=== PATIENT | female | born 1995 | race Caucasian/White ===

== ENCOUNTER 2017-08-01 12:00 | Emergency (ER) | payer OTHER ==
[~2017-08-01] VITALS: Ht 162.6 cm; Wt 56.3 kg
[2017-08-01 12:04] VITALS: TEMP 36.7; Ht 162.6 cm; Wt 56.3 kg
[2017-08-01] MEDS ORDERED: SULF800T23 PO (12:44)
[2017-08-01] MEDS ORDERED: CEPH500C PO (12:44)
[2017-08-01] MEDS ORDERED: TRAM-10 PO (12:44)
[2017-08-01] MEDS ORDERED: SEPTRA DS HOME PACK 1 EA VIAL PO ONE (12:45)
[2017-08-01] MEDS ORDERED: CEPHALEXIN 500MG HOME PACK 1 EA BTL PO ONE (12:45)
[2017-08-01] MEDS ORDERED: TRAMADOL HCL 50 MG HOME PACK PO ONE (12:45)
[2017-08-01 12:58] VITALS: BP 123/71; PULSE 61; O2SAT 100
--- NOTE | 2017-08-01 16:36 | EMERGENCY ROOM VISIT NOTE ---
History First contact with patient: 12:28 Chief Complaint: SKIN PROBLEM Stated Complaint: SWOLLEN LEFT SIDE OF FOREHEAD, PAIN History of Present Illness The patient is a 22 year old female who presents to the Emergency Room with complaints of an infection and swelling of the left forehead. The patient reports that she developed a pimple on her left cheek 3 weeks ago. She was seen at the [facility] urgent care center and provided a prescription for doxycycline which cleared the infection. The patient now reports swelling over the left forehead region that has worsened over the past few days. The patient is visiting from [place], and does have a assembler finger buffs with a prior history of eczema. She denies any prior history of antibiotic resistant infections. She does have a mild headache, and rates her discomfort a 7 out of 10. She has taken ibuprofen without a mild relief of her pain. She has also been applying a warm moist compress to the forehead. Review of Systems 10 system review was performed and was negative except for pertinent positives and negatives as indicated in history of present illness Past Medical/Surgical History Medical Problems: (1) Eczema Surgical Problems: (1) History of lumbar discectomy (2) History of tonsillectomy Family History FH: diabetes mellitus Social History Smoking Status: Current Every Day Smoker Alcohol Use: occasionally Marital Status: single Housing Status: lives with family Occupation Status: employed Current/Historical Medications Scheduled Control Pills ( Control Pills), 1 TAB PO DAILY Cephalexin Monohydrate (Keflex), 500 MG PO QID Sulfa/Trimethoprim (Bactrim Ds 800MG/160MG), 1 TAB PO BID Scheduled PRN Amphetamine-Dextroamphetamine 30MG (Adderall Xr 30MG), 30 MG PO DAILY PRN for Anxiety Tramadol (Ultram), 1 TAB PO Q4H PRN for Pain Physical Exam Vital Signs Date Time Temp Pulse Resp B/P (MAP) Pulse Ox O2 Delivery O2 Flow Rate FiO2 08/01/17 12:58 61 20 123/71 100 08/01/17 12:04 36.7 124 18 132/88 100 Room Air Physical Exam CONSTITUTIONAL: Healthy and well nourished. Alert and oriented X 3 with positive affect. Patient does not appear in any acute distress. HEENT: Examination shows some edema with minimal erythema of the left forehead region. She has a small area which appears to have a small nodule without fluctuance or drainage. . There is no significant soft tissue induration. Pupils equal, round and reactive. EOMs intact without discomfort. No conjunctival injection. Ears and nares are clear. The patient has additional papules on the face as well. LYMPHATICS: No preauricular or cervical chain adenopathy noted. NECK: Full active range of motion without discomfort. MUSCULOSKELETAL: Full range of motion of all joints without discomfort. INTEGUMENTARY: No rash or other significant dermatologic conditions noted except as indicated in HEENT. NEUROLOGIC: No focal neurologic deficits noted. Medical Decision & Procedures Medications Administered Medications (Trade) Dose Ordered Sig/Dagmar Route Start Time Stop Time Status Last Admin Dose Admin Trimethoprim/ Sulfamethoxazole (Sulfameth/ Trimeth Ds 800/ 160MG Home Pack) 1 homepack UD ONCE PO 08/01/17 12:45 08/01/17 12:46 DC 08/01/17 12:48 1 HOMEPACK Cephalexin Monohydrate (Keflex 500MG Home Pack) 1 homepack NOW ONCE PO 08/01/17 12:45 08/01/17 12:46 DC 08/01/17 12:47 1 HOMEPACK Tramadol HCl (Ultram Home Pack) 1 homepack UD ONCE PO 08/01/17 12:45 08/01/17 12:46 DC 08/01/17 12:47 1 HOMEPACK ED Course Patient history and physical exam were performed. Nurse's notes were reviewed. Vital signs were reviewed and were normal. I did suggest that we switch antibiotics this time around, and try Keflex and Bactrim DS in case this is a possible antibiotic resistant infection. The patient was encouraged to continue applying warm moist compresses. Ibuprofen and Tylenol in alternating fashion for baseline pain relief. The patient was also provided a prescription for Ultram if needed for breakthrough pain. Home packs for both antibiotics and Ultram were also provided since all pharmacies are closed today. She was encouraged to follow-up with her assembler finger buffs for further reevaluation and to discuss further management. She was instructed to seek further emergent reevaluation for any significant worsening redness, swelling, pain or fever. The patient was happy with plan of care, voiced understanding of all discharge instructions, and rated her discomfort a 4 out of 10 at the conclusion of my exam. Medical Decision [place] Drug Monitoring Program Search Results: patient reviewed within database, no issues identified Medication Reconcilliation Current Medication List: was personally reviewed by me Blood Pressure Screening Patient's blood pressure: Normal blood pressure Impression Primary Impression: Facial cellulitis Departure Information Dispostion Home / Self-Care Condition FAIR Prescriptions Tramadol (Ultram) 50 Mg Tab 1 TAB PO Q4H Y for Pain, #15 TAB For Initial Treatment Prov: Paras Pratt PA 08/01/17 Sulfa/Trimethoprim (Bactrim Ds 800MG/160MG) Tab 1 TAB PO BID for 7 Days, #14 TAB Prov: Paras Pratt PA 08/01/17 Cephalexin Monohydrate (Keflex) 500 Mg Cap 500 MG PO QID for 7 Days, #28 CAP Prov: Paras Pratt PA 08/01/17 Forms HOME CARE DOCUMENTATION FORM, IMPORTANT VISIT INFORMATION Patient Instructions My [facility] Additional Instructions Complete all Keflex and Bactrim DS antibiotics as prescribed. Intermittently apply a warm moist compress for additional relief. Ibuprofen 800 mg and/or Tylenol 1000 mg every 8 hours. You may also alternate these medications for more effective pain relief: Ibuprofen --4 HRS--> Tylenol --4 HRS--> ibuprofen --4 HRS--> Tylenol .... Ultram if needed for worse pain. Seek further emergent reevaluation for any progressively worsening infection. Suggest follow-up with a assembler finger buffs to discuss further management.
[2017-08-02] MEDS ORDERED: AMPH30CA3 PO (12:12)
[2017-08-02] MEDS ORDERED: BCPILLS PO (12:12)
== END 2017-08-01 13:02 | disposition home or self-care (01) ==
LOC: C.EDB 12:05 → C.EDD 13:02
DX: L03.211 Cellulitis of face (principal); R51 Headache; F17.210 Nicotine dependence, cigarettes, uncomplicated; L30.9 Dermatitis, unspecified

== ENCOUNTER 2017-08-02 16:54 | Inpatient (IN) | payer OTHER ==
[~2017-08-02] VITALS: Ht 162.6 cm; Wt 53.6 kg
[~2017-08-02 16:54] MED LIST: AMPH30CA3 PO; BCPILLS PO; CEPH500C PO; SULF800T23 PO; TRAM-10 PO
[2017-08-02] MEDS ORDERED: AMPICILLIN/SULBACTAM SOD INJ 3,000 MG in SODIUM CHLORIDE 0.9% 100ML 100 ML IV STA (17:56)
[2017-08-02] MEDS ORDERED: OPTIRAY 320 IV PRN (18:00)
[2017-08-02] MEDS ORDERED: IBUPROFEN 600 MG TAB PO STA (18:18)
[2017-08-02 18:29] LABS: BASO % 0.2 %; BASO ABS # 0.03 K/uL (0-0.2); EOS % 2.5 %; EOS ABS # 0.37 K/uL (0-0.5); HEMATOCRIT 40.8 % (37-47); HEMOGLOBIN 14.2 g/dL (12.0-16.0); IG# 0.03 K/uL (0.00-0.02); LYMPH % 22.7 %; LYMPH ABS # 3.32 K/uL (1.2-3.4); MEAN CORPUSCULAR HEMOGLOBIN 30.3 pg (25-34); MEAN CORPUSCULAR HGB CONC 34.8 g/dl (32-36); MONO % 6.9 %; MONO ABS # 1.01 K/uL (0.11-0.59); NEUT % 67.5 %; NEUT ABS # 9.87 K/uL (1.4-6.5); PLATELET COUNT 243 K/uL (130-400); RED CELL DISTRIBUTION WIDTH CV 13.3 % (11.5-14.5); RED CELL DISTRIBUTION WIDTH SD 42.2 fL (36.4-46.3); WHITE BLOOD COUNT 14.63 K/uL (4.8-10.8)
[2017-08-02 18:52] LABS: CALCIUM 8.7 mg/dl (8.5-10.1); CREATININE 1.02 mg/dl (0.60-1.20); POTASSIUM 3.8 mmol/L (3.5-5.1)
[2017-08-02 18:55] LABS: TOTAL PROTEIN 7.6 gm/dl (6.4-8.2)
--- NOTE | 2017-08-02 19:25 | DIAGNOSTIC IMAGING REPORT ---
FACIAL-MAXILLOFACIAL WITH CLINICAL HISTORY: L facial cellulitis with eye involvement. COMPARISON STUDY: No previous studies for comparison. TECHNIQUE: A maxillofacial CT was performed following intravenous injection of 90 cc of Optiray 320 IV. Sagittal and coronal reconstructions were viewed. FINDINGS: Visualized portions of the intracranial contents are unremarkable. Mastoid air cells are clear. The paranasal sinuses are clear. There is moderate left periorbital soft tissue swelling. There is no retrobulbar component. No rim-enhancing fluid collection is identified to suggest an abscess. Major vasculature of the upper neck is patent. No periapical abscess is identified. Epiglottis is normal. Visualized portions of airway are patent. Extraocular muscles are symmetric. IMPRESSION: Moderate left periorbital soft tissue swelling suggestive of preseptal cellulitis. No postseptal component. No abscess. Electronically signed by: Ankush Biggs M.D. 08/02/2017 7:23 PM Dictated Date/Time: 08/02/2017 7:17 PM
[2017-08-02] MEDS ORDERED: HYDROCODONE/ACETAMIN 5/325MG TAB PO STA (19:39)
[2017-08-02] MEDS ORDERED: SODIUM CHLORIDE 0.9% 500ML 500 ML IV STA (19:47)
--- NOTE | 2017-08-02 20:01 | EMERGENCY ROOM VISIT NOTE ---
History First contact with patient: 17:47 Chief Complaint: INFECTION Stated Complaint: SWOLLEN FACE Nursing Triage Summary: Patient ambulatory to triage with a steady and upright gait, states "I was here yesterday for the same thing. I could tell that my face was getting infected. I was put on antibiotics. I woke up today with more swelling and redness. It is now affecting my eye. I have no vision changes or drainage from the eye." Patient is currently taking Bactrim DS and Keflex for the infection in the left side of her face. History of Present Illness The patient is a 22 year old female who presents to the Emergency Room via private vehicle accompanied by father with complaints of "swollen face". The patient states that 2 days ago she notes that there was some redness on the left side of her face. This was near her forehead but now she woke up today it appears to be at her left eye. She was seen here in the emergency department yesterday notes she was given Keflex and Bactrim. The swelling is now worse. The pain is worse. It is rated as a 7/10. She is in ibuprofen without relief. She states that she does have a history and had to be on doxycycline in the past for an infection in the similar area. There is no pain with movements of her eye. Review of Systems A complete 10-point Review of Systems was discussed with the patient, with pertinent positives and negatives listed in the History of Present Illness. All remaining Review of Systems questions can be considered negative unless otherwise specified. Past Medical/Surgical History Medical Problems: (1) Eczema Surgical Problems: (1) History of lumbar discectomy (2) History of tonsillectomy Family History FH: diabetes mellitus Social History Smoking Status: Never Smoker Alcohol Use: occasionally Marital Status: single Housing Status: lives with family Occupation Status: employed Current/Historical Medications Scheduled Control Pills ( Control Pills), 1 TAB PO DAILY Cephalexin Monohydrate (Keflex), 500 MG PO QID Sulfa/Trimethoprim (Bactrim Ds 800MG/160MG), 1 TAB PO BID Scheduled PRN Amphetamine-Dextroamphetamine 30MG (Adderall Xr 30MG), 30 MG PO DAILY PRN for Focus Tramadol (Ultram), 1 TAB PO Q4H PRN for Pain Physical Exam Vital Signs Date Time Temp Pulse Resp B/P (MAP) Pulse Ox O2 Delivery O2 Flow Rate FiO2 08/02/17 16:59 36.8 104 20 138/92 99 Room Air Physical Exam VITAL SIGNS - Vital signs and nursing notes were reviewed. Stable. Tachycardic. GENERAL -22-year-old female appearing her stated age who is in no acute distress. Communicates well with provider and answers questions appropriately. SKIN - there is erythema from the left anterior portion of the patient's forehead extending inferiorly around the left eye. There is edema of this region. HEAD - NC/AT. EYES - PERRL with EOMI bilaterally. Sclera anicteric. No tenderness appreciated with EOMs. EARS - No deformities of external structures noted on gross examination bilaterally. No pain elicited with palpation of the tragus bilaterally. External auditory canals without discharge or otorrhea. Tympanic membranes pearly carrion without retraction or bulging. No fluid or purulent material visualized behind the TM. Handle of malleus, umbo, cone of light, pars tensa/ flaccid all easily visualized. NOSE - Midline and without cyanosis. No epistaxis or purulent drainage noted. Septum midline without deviation or septal hematoma noted. MOUTH/OROPHARYNX - Without perioral cyanosis. Buccal mucosa pink and moist and without leukoplakia. Tongue midline with equal elevation of palate bilaterally. No tonsillar hypertrophy, erythema, or exudates noted. Fair dentition noted. Medical Decision & Procedures ER Provider Diagnostic Interpretation: FACIAL-MAXILLOFACIAL WITH CLINICAL HISTORY: L facial cellulitis with eye involvement. COMPARISON STUDY: No previous studies for comparison. TECHNIQUE: A maxillofacial CT was performed following intravenous injection of 90 cc of Optiray 320 IV. Sagittal and coronal reconstructions were viewed. FINDINGS: Visualized portions of the intracranial contents are unremarkable. Mastoid air cells are clear. The paranasal sinuses are clear. There is moderate left periorbital soft tissue swelling. There is no retrobulbar component. No rim-enhancing fluid collection is identified to suggest an abscess. Major vasculature of the upper neck is patent. No periapical abscess is identified. Epiglottis is normal. Visualized portions of airway are patent. Extraocular muscles are symmetric. IMPRESSION: Moderate left periorbital soft tissue swelling suggestive of preseptal cellulitis. No postseptal component. No abscess. Electronically signed by: Ankush Biggs M.D. 08/02/2017 7:23 PM Dictated Date/Time: 08/02/2017 7:17 PM Laboratory Results 08/02/17 18:15 Red Blood Count 4.69, Mean Corpuscular Volume 87.0, Mean Corpuscular Hemoglobin 30.3, Mean Corpuscular Hemoglobin Concent 34.8, Mean Platelet Volume 9.0, Neutrophils (%) (Auto) 67.5, Lymphocytes (%) (Auto) 22.7, Monocytes (%) (Auto) 6.9, Eosinophils (%) (Auto) 2.5, Basophils (%) (Auto) 0.2, Neutrophils # (Auto) 9.87, Lymphocytes # (Auto) 3.32, Monocytes # (Auto) 1.01, Eosinophils # (Auto) 0.37, Basophils # (Auto) 0.03 08/02/17 18:15 Test 08/02/17 18:15 08/02/17 19:50 White Blood Count 14.63 K/uL (4.8-10.8) Red Blood Count 4.69 M/uL (4.2-5.4) Hemoglobin 14.2 g/dL (12.0-16.0) Hematocrit 40.8 % (37-47) Mean Corpuscular Volume 87.0 fL (80-100) Mean Corpuscular Hemoglobin 30.3 pg (25-34) Mean Corpuscular Hemoglobin Concent 34.8 g/dl (32-36) Platelet Count 243 K/uL (130-400) Mean Platelet Volume 9.0 fL (7.4-10.4) Neutrophils (%) (Auto) 67.5 % Lymphocytes (%) (Auto) 22.7 % Monocytes (%) (Auto) 6.9 % Eosinophils (%) (Auto) 2.5 % Basophils (%) (Auto) 0.2 % Neutrophils # (Auto) 9.87 K/uL (1.4-6.5) Lymphocytes # (Auto) 3.32 K/uL (1.2-3.4) Monocytes # (Auto) 1.01 K/uL (0.11-0.59) Eosinophils # (Auto) 0.37 K/uL (0-0.5) Basophils # (Auto) 0.03 K/uL (0-0.2) RDW Standard Deviation 42.2 fL (36.4-46.3) RDW Coefficient of Variation 13.3 % (11.5-14.5) Immature Granulocyte % (Auto) 0.2 % Immature Granulocyte # (Auto) 0.03 K/uL (0.00-0.02) Anion Gap 6.0 mmol/L (3-11) Est Creatinine Clear Calc Drug Dose 73.5 ml/min Estimated GFR () 89.2 Estimated GFR (Non- 76.9 BUN/Creatinine Ratio 11.3 (10-20) Calcium Level 8.7 mg/dl (8.5-10.1) Total Bilirubin 0.4 mg/dl (0.2-1) Aspartate Amino Transf (AST/SGOT) 18 U/L (15-37) Alanine Aminotransferase (ALT/SGPT) 24 U/L (12-78) Alkaline Phosphatase 57 U/L (45-117) Total Protein 7.6 gm/dl (6.4-8.2) Albumin 4.0 gm/dl (3.4-5.0) Globulin 3.6 gm/dl (2.5-4.0) Albumin/Globulin Ratio 1.1 (0.9-2) Medications Administered Medications (Trade) Dose Ordered Sig/Dagmar Route Start Time Stop Time Status Last Admin Dose Admin Ampicillin Sodium/ Sulbactam Sodium 3000 mg/Sodium Chloride 108 ml @ 200 mls/hr NOW STAT IV 08/02/17 17:56 08/02/17 18:28 DC 08/02/17 18:14 200 MLS/HR Ibuprofen (Motrin Tab) 600 mg NOW STAT PO 08/02/17 18:18 08/02/17 18:19 DC 08/02/17 18:38 600 MG Medical Decision Patient was seen and evaluated as above. She presents to us today with worsening of the infection the left side of her face. It is now around her eye. There is no pain with EOMs. IV access was initiated, and the above workup was performed. Leukocytosis near 15,000. CT was obtained to rule out abscess around the eye. There is no abscess however there is preseptal cellulitis. She was given Unasyn. She is then given vancomycin. She was given ibuprofen for pain initially per her request but then changed to [place] as the ibuprofen did not help with the pain. She was given 500 mL's of normal saline. No significant metabolic process noted. I believe that further evaluation and management in the inpatient setting is warranted for continued IV antibiotics secondary to the rapid progression of for infection here today. She was okay with this. Case was discussed with the hospitalist. Please refer to further documentation regarding her stay. She denied chance of . In evaluation treatment this patient following differential diagnoses were entertained: Preseptal cellulitis, periorbital cellulitis, orbital cellulitis, among others. Impression Primary Impression: Preseptal cellulitis of left eye Departure Information Dispostion Admitted as an inpatient Condition GOOD Referrals No Doctor, Assigned (PCP) Patient Instructions [facility]
[2017-08-02] MEDS ORDERED: POLYETHYLENE (MIRALAX) 17 GM PACK PO PRN (20:15)
[2017-08-02] MEDS ORDERED: MAGNESIUM HYDROXIDE SUSP 30 ML UDC PO PRN (20:15)
[2017-08-02] MEDS ORDERED: ONDANSETRON INJ 2 MG/ML 2 ML VIAL IV PRN (20:15)
[2017-08-02] MEDS: VANCOMYCIN IV STA ×2 (20:15→20:44)
[2017-08-02] MEDS: SODIUM CHLORIDE 0.9% IV STA ×2 (20:15→20:44)
[2017-08-02] MEDS ORDERED: ACETAMINOPHEN 325 MG TAB PO PRN (20:15)
[2017-08-02] MEDS ORDERED: ALUMINUM/MAGNESIUM/SIMETH (MAALOX MAX) 30 ML UDC PO PRN (20:15)
--- NOTE | 2017-08-02 20:28 | History and Physical ---
History & Physical Date & Time of Service: Aug 02, 2017 at 20:17 Chief Complaint: Swollen Face Primary Care Physician: No Doctor, Assigned History of Present Illness Source: patient This is a 22 y/o F who presents with left facial pain x 2 days. She reports having facial cellulitis about a month ago for which she was on Doxy for 10 days. She reports feeling pressure and swelling 2 days ago and knew it was cellulitis again. She was in the ER and was given Keflex and Bactrim. However, she feels that her swelling and pressure has worsened. She rates her pain a 7/ 10. She does have a scab on her left forehead. She denies any vision changes. She denies any pain with extraocular movements. She denies fevers, chills, nausea, vomiting. Has a low grade headache She denies a history of MRSA On BC Patient is originally from [place] and is visiting her sister here. She does have a follow up appointment scheduled with a PCP on Aug 10. Family History FH: diabetes mellitus Social History Smoking Status: Never Smoker Smokeless Tobacco Use: No Alcohol Use: socially Drug Use: none Marital Status: single Housing status: lives with family Occupational Status: employed Immunizations History of Influenza Vaccine: Unknown History of Tetanus Vaccine?: Unknown History of Pneumococcal: Unknown History of Hepatitis B Vaccine: Unknown Multi-Drug Resistant Organisms History of MDRO: No Allergies Coded Allergies: Latex (Unverified Allergy, Unknown, ., 08/02/17) Home Medications Scheduled Control Pills ( Control Pills), 1 TAB PO DAILY Cephalexin Monohydrate (Keflex), 500 MG PO QID Sulfa/Trimethoprim (Bactrim Ds 800MG/160MG), 1 TAB PO BID Scheduled PRN Amphetamine-Dextroamphetamine 30MG (Adderall Xr 30MG), 30 MG PO DAILY PRN for Focus Tramadol (Ultram), 1 TAB PO Q4H PRN for Pain Review of Systems Constitutional: No fever, No chills Eyes: + redness, No worsening of vision, No eye pain, No discharge, No diplopia Respiratory: No cough, No sputum, No wheezing, No shortness of breath, No dyspnea on exertion, No dyspnea at rest Cardiovascular: No chest pain Abdomen: No pain, No nausea, No vomiting, No diarrhea, No constipation Genitourinary - Female: No dysuria, No urinary frequency, No urinary urgency Physical Exam Vital Signs Date Time Temp Pulse Resp B/P (MAP) Pulse Ox O2 Delivery O2 Flow Rate FiO2 08/02/17 16:59 36.8 104 20 138/92 99 Room Air General Appearance: no apparent distress Eyes: normal inspection, PERRL, EOMI, sclerae normal, + pertinent finding ( redness and swelling around the left upper and lower eyelid, as well as left forehead. tender to touch) ENT: hearing grossly normal Neck: supple, no adenopathy, no JVD Respiratory/Chest: lungs clear, normal breath sounds, no respiratory distress, no accessory muscle use Cardiovascular: regular rate, rhythm, no edema, no murmur Abdomen/GI: normal bowel sounds, non tender, soft Neurologic/Psych: alert, oriented x 3 Diagnostics Laboratory Results Results Past 24 Hours Test 08/02/17 18:15 08/02/17 19:50 Range/Units White Blood Count 14.63 4.8-10.8 K/uL Red Blood Count 4.69 4.2-5.4 M/uL Hemoglobin 14.2 12.0-16.0 g/dL Hematocrit 40.8 37-47 % Mean Corpuscular Volume 87.0 80-100 fL Mean Corpuscular Hemoglobin 30.3 25-34 pg Mean Corpuscular Hemoglobin Concent 34.8 32-36 g/dl Platelet Count 243 130-400 K/uL Mean Platelet Volume 9.0 7.4-10.4 fL Neutrophils (%) (Auto) 67.5 % Lymphocytes (%) (Auto) 22.7 % Monocytes (%) (Auto) 6.9 % Eosinophils (%) (Auto) 2.5 % Basophils (%) (Auto) 0.2 % Neutrophils # (Auto) 9.87 1.4-6.5 K/uL Lymphocytes # (Auto) 3.32 1.2-3.4 K/uL Monocytes # (Auto) 1.01 0.11-0.59 K/uL Eosinophils # (Auto) 0.37 0-0.5 K/uL Basophils # (Auto) 0.03 0-0.2 K/uL RDW Standard Deviation 42.2 36.4-46.3 fL RDW Coefficient of Variation 13.3 11.5-14.5 % Immature Granulocyte % (Auto) 0.2 % Immature Granulocyte # (Auto) 0.03 0.00-0.02 K/uL Sodium Level 136 136-145 mmol/L Potassium Level 3.8 3.5-5.1 mmol/L Chloride Level 104 98-107 mmol/L Carbon Dioxide Level 26 21-32 mmol/L Anion Gap 6.0 3-11 mmol/L Blood Urea Nitrogen 12 7-18 mg/dl Creatinine 1.02 0.60-1.20 mg/dl Est Creatinine Clear Calc Drug Dose 73.5 ml/min Estimated GFR () 89.2 Estimated GFR (Non- 76.9 BUN/Creatinine Ratio 11.3 10-20 Random Glucose 79 70-99 mg/dl Calcium Level 8.7 8.5-10.1 mg/dl Total Bilirubin 0.4 0.2-1 mg/dl Aspartate Amino Transf (AST/SGOT) 18 15-37 U/L Alanine Aminotransferase (ALT/SGPT) 24 12-78 U/L Alkaline Phosphatase 57 45-117 U/L Total Protein 7.6 6.4-8.2 gm/dl Albumin 4.0 3.4-5.0 gm/dl Globulin 3.6 2.5-4.0 gm/dl Albumin/Globulin Ratio 1.1 0.9-2 Microbiology Results 08/02/17 Blood Culture, Ordered Pending 08/02/17 Blood Culture, Ordered Pending Impression Assessment and Plan 22 y/o F with left preseptal cellulitis Preseptal Cellulitis, failed outpatient tx Unasyn 3000 mg [id number] Vancomycin IV and pharmacokinetic monitoring ADD Continue Adderall control use Recommend back up protection while on antibiotics DVT proph Ambulation. Code Full Attending addendum: I have physically seen this patient, have supervised the medical residents activities, and agree with the H&P unless as otherwise noted. Assessment and Plan: Left eye preseptal cellulitis-- Have advised vancomycin IV in addition to Unasyn IV begun in the ED, as she is a failure of outpatient treatment Follow serial examination closely No signs on CT or clinical examination of orbital cellulitis If her symptoms continue to be recurrent, she should be considered for an immunologic workup. ADD-- Continue Adderall Level of Care Med/Surg Advanced Directives Existing Advance Directive: No Existing Living Will: No Existing Power of Cardiovascular Radiologic Technologist: No Resuscitation Status FULL RESUSCITATION VTE Prophylaxis VTE Risk Assessment Done? Y/N: Yes Risk Level: Moderate Given or contraindicated: SCD's Social Service Consult None Apply
[2017-08-02] MEDS ORDERED: VANCOMYCIN CONSULT ACTIVE PRN (20:45)
[2017-08-02 21:00] VITALS: BP 130/85; PULSE 72; TEMP 37; Ht 162.6 cm; Wt 53.6 kg
--- NOTE | 2017-08-02 21:00 | NUR ---
A: ARRIVED FROM ED TO ROOM 257 AT THIS TIME. ORIENTED TO ROOM/CALL [facility]. SIGNED CODE W[employer]ALL AGREEMENT FORMS. DENIES SOB/CP, N/V, OR NUMBNESS/TINGLING. LEFT HEAD SCAB AND EYE RED/SWOLLEN. RATES PAIN 7/10. SEE EMR FOR COMPLETE ADM ASSESSMENT. CALL [facility] IN REACH. FAMILY AT BEDSIDE. PRIMARY RN TO CONTINUE PT CARE.
--- NOTE | 2017-08-02 22:06 | Pharmacy Progress Note ---
Pharmacy Abx Initial Consult Date of Service Aug 02, 2017. Pharmacy Dosing Scope Date of Consult: 08/02/17 Consultation requested by: Dr. Kirkland [facility] is consulted to initiate Vanco IV dosing therapy, order appropriate labs and adjust drug dose/frequency. Subjective The patient is a 22 year old female admitted on Aug 02, 2017 at 20:15. Objective Height (Feet): 5 Height (Inches): 4.00 Weight (Kilograms): 53.600 Vital Signs (Past 12Hrs) Vital Signs Past 12 Hours Date Time Temp Pulse Resp B/P (MAP) Pulse Ox O2 Delivery O2 Flow Rate FiO2 08/02/17 21:00 37.0 72 18 130/85 Room Air 08/02/17 20:41 90 16 128/88 97 08/02/17 18:45 89 16 130/87 97 Room Air 08/02/17 16:59 36.8 104 20 138/92 99 Room Air Lab Results (24Hrs) Laboratory Tests (24 Hours) Test 08/02/17 18:15 White Blood Count 14.63 K/uL (4.8-10.8) H Red Blood Count 4.69 M/uL (4.2-5.4) Hemoglobin 14.2 g/dL (12.0-16.0) Hematocrit 40.8 % (37-47) Mean Corpuscular Volume 87.0 fL (80-100) Mean Corpuscular Hemoglobin 30.3 pg (25-34) Mean Corpuscular Hemoglobin Concent 34.8 g/dl (32-36) Platelet Count 243 K/uL (130-400) Mean Platelet Volume 9.0 fL (7.4-10.4) Neutrophils (%) (Auto) 67.5 % Lymphocytes (%) (Auto) 22.7 % Monocytes (%) (Auto) 6.9 % Eosinophils (%) (Auto) 2.5 % Basophils (%) (Auto) 0.2 % Neutrophils # (Auto) 9.87 K/uL (1.4-6.5) H Lymphocytes # (Auto) 3.32 K/uL (1.2-3.4) Monocytes # (Auto) 1.01 K/uL (0.11-0.59) H Eosinophils # (Auto) 0.37 K/uL (0-0.5) Basophils # (Auto) 0.03 K/uL (0-0.2) Micro Results Date/Time Source Procedure Growth Status 08/02/17 20:32 Blood Blood Culture Pending Received 08/02/17 20:27 Blood Blood Culture Pending Received Risk Factors for Resistance * Antimicrobial use within the last 90 days: Griselda FINANCIAL ASSISTANCE SPECIALIST Assessment & Plan Pt is a 22yo F p/w left facial cellulitis w/ concurrent pxn. She endorses facial cellulitis about a month prior for which she was treated with Doxycycline , 10day course. No baseline renal fxn data available. Current pt population p' kinetic data: t1/2=10.5, ke=0.0658, Vd=0.7. I surmise her renal fxn to improve and have thus chosen a more aggressive Vancomycin dose and dosing interval. BCx2 are pending. No h/o MDRO. qSOFA Score: 0. At this juncture she has leukocytosis with a left shift. She is afebrile. Vancomycin: * Vanco 1120mg (20mg/kg) (dosed per ED provider) x1 will achieve a peak of ~ 29mcg/mL * Given the sub-optimal loading dose and the speculation that her renal fxn will improve w/ IVF. Will initiate Vanco 1000 (17.8mg/kg) q12 * Trough ordered for 08/04/17 @ 0130, prior to Css * Goal trough until BC's result:15-20mcg/mL Unasyn: * Not a pharmacy consult; however, appropriately dosed. Pharmacy will continue to follow and will adjust dose/frequency as necessary. Thank you.
[2017-08-02 23:23] VITALS: BP 138/92; PULSE 91; TEMP 36.9; O2SAT 99
[2017-08-02] MEDS ORDERED: NURSING VERBAL MED ORDER ONE (23:30)
[2017-08-02] MEDS ORDERED: HYDROmorphone HCL 2 MG TAB PO STA (23:45)
[2017-08-02] MEDS: AMPICILLIN/SULBACTAM SOD INJ 3,000 MG in SODIUM CHLORIDE 0.9% 100ML 100 ML IV SCH (23:56)
[2017-08-03] MEDS: VANCOMYCIN IV 1,000 MG in SODIUM CHLORIDE 0.9% 250ML 250 ML IV SCH ×2 (01:39→14:11)
[2017-08-03] MEDS: AMPICILLIN/SULBACTAM SOD INJ 3,000 MG in SODIUM CHLORIDE 0.9% 100ML 100 ML IV SCH ×4 (06:00→23:23)
[2017-08-03 06:30] LABS: BASO % 0.4 %; BASO ABS # 0.04 K/uL (0-0.2); EOS % 4.4 %; HEMATOCRIT 37.6 % (37-47); HEMOGLOBIN 12.7 g/dL (12.0-16.0); IG# 0.03 K/uL (0.00-0.02); LYMPH % 19.6 %; LYMPH ABS # 2.22 K/uL (1.2-3.4); MEAN CELL VOLUME 88.3 fL (80-100); MEAN CORPUSCULAR HEMOGLOBIN 29.8 pg (25-34); MEAN CORPUSCULAR HGB CONC 33.8 g/dl (32-36); MEAN PLATELET VOLUME 9.1 fL (7.4-10.4); MONO % 6.9 %; MONO ABS # 0.78 K/uL (0.11-0.59); NEUT % 68.4 %; NEUT ABS # 7.77 K/uL (1.4-6.5); PLATELET COUNT 197 K/uL (130-400); RED CELL DISTRIBUTION WIDTH CV 13.5 % (11.5-14.5); RED CELL DISTRIBUTION WIDTH SD 43.7 fL (36.4-46.3); WHITE BLOOD COUNT 11.34 K/uL (4.8-10.8)
[2017-08-03 07:30] VITALS: BP 125/86; PULSE 84; TEMP 36.7; O2SAT 100
[2017-08-03] MEDS ORDERED: INFLUENZA ADMINISTRATION CHARGE ONE (08:00)
[2017-08-03] MEDS ORDERED: INFLUENZA VIRUS QUAD VACCINE 0.5 ML SYR IM. ONE (08:00)
[2017-08-03 08:01] VITALS: O2SAT 100
[2017-08-03] MEDS ORDERED: KETOROLAC TROMETHAMINE 30 MG/ML VIAL IV STA (08:59)
[2017-08-03 13:43] LABS: CREATININE 0.81 mg/dl (0.60-1.20)
[2017-08-03] MEDS ORDERED: NURSING VERBAL MED ORDER ONE (16:00)
[2017-08-03 16:02] VITALS: O2SAT 100
[2017-08-03 16:08] VITALS: BP 118/77; PULSE 88; TEMP 36.7; O2SAT 98
[2017-08-03] MEDS: KETOROLAC TROMETHAMINE 30 MG/ML VIAL IV. PRN (17:07)
[2017-08-03] MEDS: OXYCODONE/ACETAMINOPHEN 5-325 TAB PO PRN ×2 (18:26→23:23)
--- NOTE | 2017-08-03 19:10 | NUR ---
Spoke with Dr. Ziegler Resident - she stated that she is susceptible to get yeast infections when she is on abx. MD aware. No orders placed at this time.
[2017-08-03] MEDS ORDERED: FLUCONAZOLE 50 MG TAB PO ONE (19:15)
--- NOTE | 2017-08-03 21:26 | Family Medicine Progress Note ---
Progress Note Date of Service Aug 03, 2017. Subjective Pt evaluation today including: conversation w/ patient, physical exam, chart review, lab review, review of studies, review of inpatient medication list Pain: patient reporting moderate discomfort and pressure of face PO Intake: tolerating PO food without complication Voiding: no voiding problems Patient states her discomfort is still present, and states her swelling has seemed to shift from her forehead and left eye to the side of her face and left eye. She is requesting something for pain/discomfort but asks it not be as strong as the dilauded she received last night Constitutional: No fever, No chills, No sweats, No weight loss, No weakness , No fatigue, No problem reported Eyes: + redness, + problem reported (preseptal swelling), No worsening of vision, No eye pain, No discharge, No diplopia Abdomen: No nausea, No vomiting, No diarrhea Skin: + new/changing skin lesions (numerous acne papules and nodules) All Other Systems: Reviewed and Negative Medications Current Inpatient Medications Medications (Trade) Dose Ordered Sig/Dagmar Route Start Time Stop Time Status Last Admin Dose Admin Ioversol (Optiray 320) 100 ml UD PRN IV 08/02/17 18:00 08/06/17 17:59 Acetaminophen (Tylenol Tab) 650 mg Q4H PRN PO 08/02/17 20:15 09/01/17 20:14 Al Hydrox/Mg Hydrox/Simethicone (Maalox Max Susp) 15 ml Q4H PRN PO 08/02/17 20:15 09/01/17 20:14 Magnesium Hydroxide (Milk Of Magnesia Susp) 30 ml Q6H PRN PO 08/02/17 20:15 09/01/17 20:14 Polyethylene (Miralax Powder Packet) 17 gm DAILY PRN PO 08/02/17 20:15 09/01/17 20:14 Ondansetron HCl (Zofran Inj) 4 mg Q6H PRN IV 08/02/17 20:15 09/01/17 20:14 Miscellaneous Information (Order Awaiting Action) 1 ea QS N/A 08/03/17 00:00 09/02/17 00:00 Miscellaneous Information (Order Awaiting Action) 1 ea QS N/A 08/03/17 00:00 09/02/17 00:00 Ampicillin Sodium/ Sulbactam Sodium 3000 mg/Sodium Chloride 108 ml @ 200 mls/hr Q6H IV 08/03/17 00:00 08/13/17 00:00 08/03/17 17:05 200 MLS/HR Vancomycin HCl 1000 mg/Sodium Chloride 270 ml @ 125 mls/hr Q12H IV 08/03/17 02:00 08/13/17 01:59 08/03/17 14:11 125 MLS/HR Vancomycin HCl (Consult) 1 ea UD PRN N/A 08/02/17 20:45 09/01/17 20:44 Ketorolac Tromethamine (Toradol Inj) 30 mg Q6H PRN IV. 08/03/17 16:15 08/08/17 16:14 08/03/17 17:07 30 MG Oxycodone/ Acetaminophen (Percocet 5-325mg Tab) 1 tab Q4H PRN PO 08/03/17 18:15 08/17/17 18:14 08/03/17 18:26 1 TAB Objective Vital Signs Date Time Temp Pulse Resp B/P (MAP) Pulse Ox O2 Delivery O2 Flow Rate FiO2 08/03/17 16:08 36.7 88 16 118/77 (91) 98 Room Air 08/03/17 16:02 100 Room Air 08/03/17 08:01 100 Room Air 08/03/17 07:30 36.7 84 16 125/86 (99) 100 Room Air 08/03/17 00:00 Room Air 08/02/17 23:23 36.9 91 18 138/92 (107) 99 Room Air Physical Exam General Appearance: WD/WN, no apparent distress Eyes: PERRL, EOMI, + pertinent finding (Left preseptal swelling, left sided conjunctival erythema) ENT: normal ENT inspection, hearing grossly normal, TMs normal, pharynx normal Neck: supple, no adenopathy, no JVD, trachea midline Respiratory/Chest: chest non-tender, lungs clear, normal breath sounds, no respiratory distress, no accessory muscle use Cardiovascular: regular rate, rhythm, no edema, no JVD, no murmur 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, no motor/sensory deficits, alert, normal mood/affect, oriented x 3 Skin: + pertinent finding (3 areas of swelling demarcated with surgical pen: forehead 2.5x 2.5 cm induration around scab from papular/nodular acne, L eye/ preseptal 6x 5cm and left face 4.5x3.5 cm; also ) Laboratory Results Last Resulted 08/03/17 06:15 Red Blood Count 4.26, Mean Corpuscular Volume 88.3, Mean Corpuscular Hemoglobin 29.8, Mean Corpuscular Hemoglobin Concent 33.8, Mean Platelet Volume 9.1, Neutrophils (%) (Auto) 68.4, Lymphocytes (%) (Auto) 19.6, Monocytes (%) (Auto) 6.9, Eosinophils (%) (Auto) 4.4, Basophils (%) (Auto) 0.4, Neutrophils # (Auto) 7.77, Lymphocytes # (Auto) 2.22, Monocytes # (Auto) 0.78, Eosinophils # (Auto) 0.50, Basophils # (Auto) 0.04 Last Resulted 08/02/17 18:15 08/03/17 13:08 Assessment and Plan 22 y/o F with left preseptal cellulitis after failed outpatient therapy Preseptal Cellulitis Likely source from open acne lesion on forehead No clinical signs of orbital cellulitis Unasyn 3000 mg IVq6h Vancomycin IV and pharmacokinetic monitoring Will consider halting unasyn based on clinical response considering gram pos coverage of vanc (patient treated with 10 days of doxycycline, 2 days of keflex and bactrim) Diflucan 150 x 1 given Areas of inflammation marked: forehead: 2.5x2.5cm, left side of face 4.5x3.5 cm , and preseptal/left eye 6x5 cm Pain control: toradol 30 for pain <6/10; percocet 5/325 for pain >6/10 ADD Continue Adderall control use Recommend back up protection while on antibiotics On discharge would suggest either accutane or bhavana for improved acne coverage Acne is papular with minimal inflammation and nodularity DVT proph Ambulation. Code Full Dispo: med/surg, continue to monitor, patient has outpatient appt in [place] with PCP on Aug 10 2017 Resident Physician Supervision Note: I interviewed and examined the patient. Discussed with Dr. Wang and agree with findings and plan as documented in the note. Any exceptions or clarifications are listed here: None Documented By: Tao Nguyen erythema improvign already, pain still present but improving. no trouble w eye movements. previous cellulitis got totally better thinks acne lesion was culprit this time maryjo noted nad breathing unlabored. areas outlined on face show receding erythema, dull pink not bright red. EOMI facial cellulitis - hard to say truly failed outpt treatment as she'd only been on it for about a day - more likely infection was just progressing enough taht it would require IV to turn the situation around. with ongoing improvement anticipate home on PO abx tomorrow. -recurrence likely relates to new strain of staph or strep that she assimilated recently -- no prior troubles w frequent or recurrent infections to suggest immune defcieicny, etc. acne likely portal of entry - would recommend discussing further treatment for this w PCP. Resident Tracking Resident Involvement: Resident Care Provided Care Provided: Adult Hospital Medicine
--- NOTE | 2017-08-03 21:38 | NUR ---
ID: Pt is a 22 y/o female admitted with cellulitus of left face. Pt is from [place]. Still receiving IV abx at this time no discharge plans.
[2017-08-04 00:13] VITALS: BP 111/78; PULSE 74; TEMP 36.9; O2SAT 98
[2017-08-04] MEDS ORDERED: VANCOMYCIN TROUGH ONE (01:30)
[2017-08-04] MEDS: VANCOMYCIN IV 1,000 MG in SODIUM CHLORIDE 0.9% 250ML 250 ML IV SCH (01:36)
[2017-08-04] MEDS: KETOROLAC TROMETHAMINE 30 MG/ML VIAL IV. PRN ×3 (01:37→16:53)
[2017-08-04] MEDS: AMPICILLIN/SULBACTAM SOD INJ 3,000 MG in SODIUM CHLORIDE 0.9% 100ML 100 ML IV SCH ×2 (05:03→12:43)
[2017-08-04 05:45] LABS: BASO % 0.4 %; BASO ABS # 0.03 K/uL (0-0.2); EOS ABS # 0.49 K/uL (0-0.5); HEMATOCRIT 38.1 % (37-47); HEMOGLOBIN 12.3 g/dL (12.0-16.0); IG# 0.01 K/uL (0.00-0.02); LYMPH % 34.1 %; LYMPH ABS # 2.78 K/uL (1.2-3.4); MEAN CELL VOLUME 88.2 fL (80-100); MEAN CORPUSCULAR HEMOGLOBIN 28.5 pg (25-34); MEAN CORPUSCULAR HGB CONC 32.3 g/dl (32-36); MEAN PLATELET VOLUME 9.2 fL (7.4-10.4); MONO % 7.4 %; NEUT ABS # 4.25 K/uL (1.4-6.5); PLATELET COUNT 185 K/uL (130-400); RED CELL DISTRIBUTION WIDTH CV 13.1 % (11.5-14.5); RED CELL DISTRIBUTION WIDTH SD 42.4 fL (36.4-46.3); WHITE BLOOD COUNT 8.16 K/uL (4.8-10.8)
[2017-08-04] MEDS: OXYCODONE/ACETAMINOPHEN 5-325 TAB PO PRN (06:01)
[2017-08-04 06:24] LABS: CALCIUM 8.2 mg/dl (8.5-10.1); CREATININE 0.75 mg/dl (0.60-1.20); POTASSIUM 3.9 mmol/L (3.5-5.1)
[2017-08-04 07:52] VITALS: BP 106/62; PULSE 79; TEMP 37; O2SAT 97
[2017-08-04] MEDS ORDERED: VANCOMYCIN IV 1,250 MG in SODIUM CHLORIDE 0.9% 250ML 250 ML IV SCH (10:00)
[2017-08-04] MEDS ORDERED: CEPH500C PO (13:29)
[2017-08-04] MEDS ORDERED: SULF800T23 PO (13:29)
--- NOTE | 2017-08-04 14:56 | Discharge Instructions ---
Discharge Instructions Date of Service Aug 04, 2017. Admission Reason for Admission: Preseptal Cellulitis Of Left Eye Discharge Discharge Diagnosis / Problem: Preseptal Cellulitis of left eye and left side of face Discharge Goals Goal(s): Decrease discomfort, Improve disease control, Therapeutic intervention Activity Recommendations Activity Limitations: per Instructions/Follow-up section . Instructions / Follow-Up Instructions / Follow-Up During your visit to the hospital, you were treated for an infection of the left side of your face. You were given IV antibiotics due to the fact you had not cleared the infection with oral antibiotics. You will be required to take another course of oral antibiotics when you leave the hospital. These medications are Bactrim, which you will take twice daily for 10 days, and Keflex, which you will take 4 times daily for 10 days. You should discard the antibiotics left over from your first ER visit. Be advised that if you are sexually active while on antibiotics, you should use backup protection as the medication can decrease the effectiveness of control pills. You may also want to ingest a probiotic or eat yogurt daily to deter from antibiotic-related diarrhea We believe the source of the infection may have been from an open acne lesion. While your acne is moderately controlled with your current control pills, we believe there are a few better options that will help your acne considerably and help prevent another episode of the facial cellulitis. These options include "bhavana" control pills as well as "accutane" (not control, and would need to be managed by dermatology.) Please discuss these options with your primary care physician and/or your financial planning adviser. Please keep your appointment with your new primary care physician on August 10. We recommend advil and tylenol for pain control. Since these medications work differently, you may take these overlapping (i.e. 2-3 hours after taking tylenol , you may take a dose of ibuprofen) throughout the day as needed. If you experience a sudden worsening of your symptoms, or begin to feel fevers, chills, have nausea or vomiting, please return to the ED. Current Hospital Diet Patient's current hospital diet: Regular Diet Discharge Diet Recommended Diet: Regular Diet Pending Studies Studies pending at discharge: no Medical Emergencies . Who to Call and When: Medical Emergencies: If at any time you feel your situation is an emergency, please call 911 immediately. . Non-Emergent Contact Non-Emergency issues call your: Primary Care Provider . . "Provider Documentation" section prepared by Elena Wang. . VTE Core Measure Inpt VTE Proph given/why not?: SCD's [place] Drug Monitoring Program Search Results: patient reviewed within database, no issues identified
[2017-08-04 15:06] VITALS: BP 109/72; PULSE 79; TEMP 36.9; O2SAT 98
[2017-08-04 15:26] VITALS: BP 109/72; PULSE 79; TEMP 36.9; O2SAT 98
--- NOTE | 2017-08-04 17:21 | Progress Note ---
Progress Note Date of Service Aug 04, 2017. Progress Note This patient, DOUG GREEN, was under our care at [facility] in [place], [place] from August 02-August 04, 2018. She should be excused from work for these dates and until August 09, 2017. Please contact the hospital with any questions. Elena Wang MD
--- NOTE | 2017-08-04 17:44 | NUR ---
Patient is discharged home per MD. Reviewed discharge instruction with patient, stated no questions. Patient has 2 hard scritps, discharge instructions, cell phone, weight inspector, boone, necklace, and clothing at time of discharge. IV site removed from L FA Dressing c/d/i. Sister is providing transport. Resident provided patient with work excuse. Pt has at time of discharge. Pt ambulated to main entrance refused wheelchari. No further needs at this time.
--- NOTE | 2017-08-04 23:04 | Discharge Summary ---
Discharge Summary Date of Service Aug 04, 2017. Discharge Summary Admission Date: Aug 02, 2017 at 20:15 Discharge Date: Aug 04, 2017 Discharge Disposition: Home Principal Diagnosis: Left preseptal facial cellulitis Problems/Secondary Diagnoses: ADD Immunizations: Have You Had Influenza Vaccine: Unknown History of Tetanus Vaccine?: Unknown History of Pneumococcal: Unknown History of Hepatitis B Vaccine: Unknown Medication Reconciliation Continued Medications: Amphetamine-Dextroamphetamine 30MG (Adderall Xr 30MG) 1 Cap Cap 30 MG PO DAILY PRN for Focus, CAP Control Pills ( Control Pills) Tab 1 TAB PO DAILY, TAB Cephalexin Monohydrate (Keflex) 500 Mg Cap 500 MG PO QID for 10 Days, #40 CAP (This prescription has been renewed) Sulfa/Trimethoprim (Bactrim Ds 800MG/160MG) Tab 1 TAB PO BID for 10 Days, #20 TAB (This prescription has been renewed) Discontinued Medications: Tramadol (Ultram) 50 Mg Tab 1 TAB PO Q4H PRN for Pain, #15 TAB For Initial Treatment Discharge Exam ROS Constitutional: No fever, No chills, No sweats, No weight loss, No weakness, No fatigue, No problem reported Eyes: + redness, + problem reported (preseptal swelling), No worsening of vision, No eye pain, No discharge, No diplopia Abdomen: No nausea, No vomiting, No diarrhea Skin: + new/changing skin lesions (numerous acne papules and nodules) All Other Systems: Reviewed and Negative PE: General Appearance: WD/WN, no apparent distress Eyes: PERRL, EOMI, + pertinent finding (Left preseptal swelling, left sided conjunctival erythema) ENT: normal ENT inspection, hearing grossly normal, TMs normal, pharynx normal Neck: supple, no adenopathy, no JVD, trachea midline Respiratory/Chest: chest non-tender, lungs clear, normal breath sounds, no respiratory distress, no accessory muscle use Cardiovascular: regular rate, rhythm, no edema, no JVD, no murmur 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 Vancomycin IV as well Will consider halting unasyn based on clinical response considering gram pos coverage of vanc (patient treated with 10 days of doxycycline, 2 days of keflex and bactrim prior to admission) Diflucan 150 x 1 given Areas of inflammation marked: forehead: 2.5x2.5cm, left side of face 4.5x3.5 cm , and preseptal/left eye 6x5 cm; all significantly improved after 36 hours of IV abx Pain control: toradol 30 for pain <6/10; percocet 5/325 for pain >6/10; patient had significant pain while admitted, but improved leading up to discharge Discharged on 10 day course of both keflex 500 qid and bactrim DS BID ADD Continue Adderall control use Recommended back up protection while on antibiotics On discharge would suggest either accutane or bhavana for improved acne coverage Acne is papular with minimal inflammation and nodularity Resident Physician Supervision Note: I interviewed and examined the patient. Discussed with Dr. Wang and agree with findings and plan as documented in the note. Any exceptions or clarifications are listed here: None Documented By: Tao Nguyen feeling better wants to go home. vitals noted nad facial erythema resolved on spiritism area, resolving nicely pale pink around eyes and EOMI without any difficulty, area on forehead only pink as well, still reasonably tender but non nodular no fluctuance facial cellulitis - improving. stable for home. does not appear to have been treatment failure on bactrim/keflex as much as just not enough time for it to work. now able to go home on above abx. PCP next week Total Time Spent: Less than 30 minutes This includes examination of the patient, discharge planning, medication reconciliation, and communication with other providers. Discharge Instructions Please refer to the electronic Patient Visit Report (Discharge Instructions) for additional information. Follow-Up Patient has follow up with PCP on Aug 10 in [place] Resident Tracking Resident Involvement: Resident Care Provided Care Provided: [facility]
== END 2017-08-04 17:52 | disposition home or self-care (01) | DRG 603 ==
LOC: C.EDB 16:55 → C.MS2W 20:15 → ENRESERV 20:22
PROVIDERS: ADMIT Hospitalist; ATTEND Family Medicine
DX: L03.213 Periorbital cellulitis (principal); F90.9 Attention-deficit hyperactivity disorder, unspecified type; Z79.3 Long term (current) use of hormonal contraceptives; Z79.899 Other long term (current) drug therapy